=== PATIENT | female | born 1965 | race Caucasian/White ===

== ENCOUNTER 2017-10-25 09:24 | Emergency (ER) | payer SELFPAY ==
--- NOTE | 2017-10-25 09:27 | UC ---
Headache HPI - HPI Summary HPI Summary: 52 year old female presents with complains of headache and lost of memory. - History Of Current Complaint Stated Complaint: DIZZINESS, HEADACHE Time Seen by Provider: 10/25/17 09:26 Hx Obtained From: Patient Onset/Duration: Sudden Onset Onset Of Symptoms: Sudden - Allergies/Home Medications Allergies/Adverse Reactions: Allergies Allergy/AdvReac Type Severity Reaction Status Date / Time Amoxicillin [From Augmentin] Allergy Eyes Verified 10/25/17 09:26 Itchy/Swollen/Red/Watery Clavulanic Acid Allergy Eyes Verified 10/25/17 09:26 [From Augmentin] Itchy/Swollen/Red/Watery PMH/Surg Hx/FS Hx/Imm Hx Previously Healthy: Yes - Surgical History Surgical History: Yes Surgery Procedure, Year, and Place: partial [id number]. cyst left kidney, -. tonsils removed- - Social History Substance Use Type: None Review of Systems Constitutional: Negative Skin: Negative Eyes: Negative ENT: Negative Respiratory: Negative Cardiovascular: Negative Gastrointestinal: Negative Genitourinary: Negative Motor: Negative Neurovascular: Negative Musculoskeletal: Negative Neurological: Headache Psychological: Negative All Other Systems Reviewed And Are Negative: Yes Physical Exam Triage Information Reviewed: Yes Vital Signs Reviewed: Yes Eye Exam: Normal ENT Exam: Normal Dental Exam: Normal Neck exam: Normal Neck: Positive: 1 Respiratory Exam: Normal Cardiovascular Exam: Normal Abdominal Exam: Normal Musculoskeletal Exam: Normal Neurological Exam: Normal Psychological Exam: Normal Skin Exam: Normal Headache Course/Dx - Differential Dx/Diagnosis Provider Diagnoses: headache. global amnesia Discharge - Discharge Plan Condition: Stable Disposition: HOME Patient Education Materials: Acute Headache (ED) Referrals: Stacy Thakkar PA [Primary Care Provider] - Additional Instructions: patient suggested to go to er.
[2017-10-25 09:32] VITALS: BP 173/101
== END 2017-10-25 09:42 | disposition home or self-care (01) ==
LOC: UCCORT 09:24
DX: R51 Headache (principal); G45.4 Transient global amnesia
CPT/HCPCS: 99202; G0463

== ENCOUNTER 2018-06-14 11:29 | Emergency (ER) | payer OTHER ==
[2018-06-14 12:29] VITALS: BP 136/88
--- NOTE | 2018-06-14 13:49 | UC ---
Complaint Female HPI - HPI Summary HPI Summary: Patient presents with complaints of urinary urgency, frequency, and decreased amount of output with each void. She also now reports mild felt sided flank pain. She denies fever, chills, abdominal pain, nausea, vomiting, diarrhea. She denies any abnormal vaginal discharge or bleeding. - History Of Current Complaint Chief Complaint: UCGU Stated Complaint: URINARY COMPLAINT Time Seen by Provider: 06/14/18 12:38 Hx Obtained From: Patient ?: No Onset/Duration: Gradual Onset, Lasting Days Timing: Intermittent Severity Initially: Mild Severity Currently: Moderate Pain Intensity: 1 Pain Scale Used: Adult Non Verbal Character: Burning Aggravating Factor(s): Urination Associated Signs And Symptoms: Positive: Negative - Risk Factors Ectopic Risk Factor: Negative Ovarian Torsion Risk Factor: Negative - Allergies/Home Medications Allergies/Adverse Reactions: Allergies Allergy/AdvReac Type Severity Reaction Status Date / Time amoxicillin [From Augmentin] Allergy Eyes Verified 06/14/18 12:30 Itchy/Swollen/Red/Watery clavulanic acid Allergy Eyes Verified 06/14/18 12:30 [From Augmentin] Itchy/Swollen/Red/Watery Home Medications: Home Medications Citalopram TAB* [Celexa TAB*] 1 tab PO DAILY 06/14/18 [History Confirmed ] PMH/Surg Hx/FS Hx/Imm Hx Previously Healthy: Yes - Surgical History Surgical History: Yes Surgery Procedure, Year, and Place: partial [id number]. cyst left kidney, -. tonsils removed-[facility] - Family History Known Family History: Positive: Other - CVA Cancer - Social History Occupation: Employed Full-time Lives: With Family Alcohol Use: None Substance Use Type: None Smoking Status (MU): Never Smoked Tobacco Review of Systems Constitutional: Negative Skin: Negative Eyes: Negative ENT: Negative Respiratory: Negative Cardiovascular: Negative Gastrointestinal: Negative Genitourinary: Dysuria, Hematuria, Frequency, Urgency Motor: Negative Neurovascular: Negative Musculoskeletal: Other: - mild left sided CVAT. Neurological: Negative Psychological: Negative Is Patient Immunocompromised?: No All Other Systems Reviewed And Are Negative: Yes Physical Exam Triage Information Reviewed: Yes Appearance: Well-Appearing Vital Signs: Initial Vital Signs Temp 98.6 F 06/14/18 12:27 Pulse 82 06/14/18 12:27 Resp 12 06/14/18 12:27 BP 136/88 06/14/18 12:27 Pulse Ox 100 06/14/18 12:27 Vital Signs Reviewed: Yes Eye Exam: Normal ENT Exam: Normal Neck exam: Normal Neck: Positive: 1 Respiratory Exam: Normal Cardiovascular Exam: Normal Abdominal Exam: Normal Abdomen Description: Positive: Other: - mild left sided cvat on palpation Musculoskeletal Exam: Normal Neurological Exam: Normal Psychological Exam: Normal Skin Exam: Normal Complaint Female Dx - Course Course Of Treatment: Patient presents with complaints of urinary urgency, frequency, and dysuria, UA + for UTI, also discussed possiblity of early pylonephritis, and or kidney stone. Patient states he son had a kidney stone and she does not feel her level of pain is consistent with what he experienced. I at this time feel that it it reasonable to treat for UTI, I couldnot RX cipro and it interacts with her clexa with QT interval prolongation, so I RX Kelfex 50mg bid x 10 days, and if her symtpoms worsed she will go to the ER. Patient verbalized understanding of and in agreement with the discharge plan. - Differential Dx/Diagnosis Differential Diagnosis/HQI/PQRI: Urinary Tract Infection Provider Diagnoses: uti Discharge - Sign-Out/Discharge Documenting (check all that apply): Patient Departure - Discharge Plan Condition: Stable Disposition: HOME Prescriptions: Cephalexin CAP* [Keflex CAP*] 500 mg PO BID #20 cap Patient Education Materials: Urinary Tract Infection in Women (DC) Referrals: Herman Day MD [Primary Care Provider] - Additional Instructions: Follow up with your doctor in three days. - Billing Disposition and Condition Condition: STABLE Disposition: Home
--- NOTE | 2018-06-16 18:25 | UC ---
- Progress Note Progress Note: + E. Coli Pt on Cephalexin + sensitive no change janetj 06/16/18 Discharge - Sign-Out/Discharge Documenting (check all that apply): Patient Departure - Discharge Plan Condition: Stable Disposition: HOME Prescriptions: Cephalexin CAP* [Keflex CAP*] 500 mg PO BID #20 cap Patient Education Materials: Urinary Tract Infection in Women (DC) Referrals: Herman Day MD [Primary Care Provider] - Additional Instructions: Follow up with your doctor in three days. - Billing Disposition and Condition Condition: STABLE Disposition: Home
== END 2018-06-14 13:15 | disposition home or self-care (01) ==
LOC: UCEAST 11:29
DX: N39.0 Urinary tract infection, site not specified (principal); Z88.0 Allergy status to penicillin
CPT/HCPCS: 81003; 87077; 87086; 87186; 99212; G0463